=== PATIENT | male | born 1990 | race African-American/Black ===

== ENCOUNTER 2017-08-02 03:05 | Emergency (ER) | payer SELFPAY ==
--- NOTE | 2017-08-02 09:41 | NUR ---
SEE DIRECTOR TRAFFIC AND PLANNING CHARTING
== END 2017-08-02 22:46 | disposition home or self-care (01) ==
LOC: ER 03:05
DX: L50.0 Allergic urticaria (principal); J45.909 Unspecified asthma, uncomplicated

== ENCOUNTER 2017-08-10 05:08 | Emergency (ER) | payer SELFPAY ==
[~2017-08-10] VITALS: Ht 177.8 cm; Wt 72.6 kg
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
--- NOTE | 2017-08-10 06:02 | NUR ---
DR. DANG AT BEDSIDE FOR EVAL.
--- NOTE | 2017-08-10 06:06 | NUR ---
AT BEDSIDE FOR EVAL
[2017-08-10] MEDS ORDERED: KETOROLAC TROMETHAMINE 15 MG/ML VIAL ONE (06:08)
[2017-08-10] MEDS ORDERED: diphenhydrAMINE HCL 50 MG CAPSULE ONE (06:08)
[2017-08-10] MEDS ORDERED: FAMOTIDINE (20 MG) 20 MG TABLET ONE (06:25)
[2017-08-10] MEDS ORDERED: KETOROLAC TROMETHAMINE INJ 60 MG/2 ML VIAL IM ONE (06:30)
[2017-08-10] MEDS ORDERED: FAMOTIDINE (20 MG) 20 MG TABLET PO ONE (06:30)
[2017-08-10] MEDS ORDERED: diphenhydrAMINE HCL 50 MG CAPSULE PO ONE (06:30)
--- NOTE | 2017-08-10 06:31 | NUR ---
MEDICATED ORDERED BY
--- NOTE | 2017-08-10 06:50 | NUR ---
PT RESTING QUIETLY WITH EYES CLOSED. RESP EVEN AND UNLABORED/VSS.
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
--- NOTE | 2017-08-10 07:14 | NUR ---
REPORT GIVEN TO CORTES TELLEZ
--- NOTE | 2017-08-10 07:35 | NUR ---
Patient discharged to home in stable condition. Written and verbal after care instructions given. Patient verbalizes understanding of instruction.
[2017-08-10 07:36] VITALS: BP 111/71
== END 2017-08-10 07:36 | disposition home or self-care (01) ==
LOC: ER 05:10
DX: M54.41 Lumbago with sciatica, right side (principal); L50.9 Urticaria, unspecified; J45.909 Unspecified asthma, uncomplicated
CPT/HCPCS: 96372; 99283; A4606; J1885; Q0163; Z7610

== ENCOUNTER 2017-12-26 03:03 | Emergency (ER) | payer SELFPAY ==
[~2017-12-26] VITALS: Ht 170.2 cm; Wt 68.0 kg
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
--- NOTE | 2017-12-26 03:21 | NUR ---
DR. RAMOS AT BEDSIDE FOR EVAL.
[2017-12-26] MEDS ORDERED: HYDROCODONE/APAP 5/325MG 1 EACH TABLET PO ONE (03:30)
[2017-12-26] MEDS ORDERED: HYDROCODONE/APAP 5/325MG 1 EACH TABLET ONE (03:33)
--- NOTE | 2017-12-26 03:36 | NUR ---
PT TO RADIOLOGY
[2017-12-26 04:49] VITALS: BP 130/65
== END 2017-12-26 04:50 | disposition left against medical advice (07) ==
LOC: ER 03:04
DX: S09.90XA Unspecified injury of head, initial encounter (principal); S13.4XXA Sprain of ligaments of cervical spine, initial encounter; S33.5XXA Sprain of ligaments of lumbar spine, initial encounter; S20.219A Contusion of unspecified front wall of thorax, initial encounter; S50.812A Abrasion of left forearm, initial encounter; S50.811A Abrasion of right forearm, initial encounter; J45.909 Unspecified asthma, uncomplicated; V49.49XA Driver injured in collision with other motor vehicles in traffic accident, initial encounter; Y93.89 Activity, other specified; Y92.89 Other specified places as the place of occurrence of the external cause; Y99.8 Other external cause status
CPT/HCPCS: 70450-TC; 71045-TC; 72100-TC; 72125-TC; A4606; Z7610

== ENCOUNTER 2018-10-03 00:28 | Emergency (ER) | payer SELFPAY ==
[~2018-10-03] VITALS: Ht 167.6 cm; Wt 71.7 kg
[2018-10-03 00:31] VITALS: BP 155/78
--- NOTE | 2018-10-03 01:21 | NUR ---
Pt called to for MD mendez, no answer.
--- NOTE | 2018-10-03 01:28 | NUR ---
Pt called to bed. Per ER admitting, pt left ER. LWBS.
== END 2018-10-03 01:33 | disposition left against medical advice (07) ==
LOC: ER 00:30
DX: Z53.21 Procedure and treatment not carried out due to patient leaving prior to being seen by health care provider (principal); M54.5 Low back pain; I10 Essential (primary) hypertension; J45.909 Unspecified asthma, uncomplicated; V49.49XA Driver injured in collision with other motor vehicles in traffic accident, initial encounter; Y93.89 Activity, other specified; Y92.89 Other specified places as the place of occurrence of the external cause; Y99.8 Other external cause status
CPT/HCPCS: A4606; Z7610

== ENCOUNTER 2020-08-03 20:29 | Emergency (ER) | payer SELFPAY ==
[~2020-08-03] VITALS: Ht 172.7 cm; Wt 74.8 kg
[2020-08-03] MEDS ORDERED: LORAZEPAM 1 MG TABLET PO ONE (21:00)
[2020-08-03] MEDS ORDERED: LORAZEPAM 1 MG TABLET ONE (21:22)
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
[2020-08-03] MEDS ORDERED: IV NS 0.9% 1,000 ML BAG IV ONE (21:30)
[2020-08-03] MEDS ORDERED: ONDANSETRON HCL/PF 4 MG/2 ML VIAL IVP ONE (21:30)
[2020-08-03] MEDS ORDERED: ONDANSETRON HCL/PF 4 MG/2 ML VIAL ONE (21:35)
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
[2020-08-03 22:05] LABS: BASOPHILS % (AUTO) 0.4 % (0.0-2.0); EOSINOPHILS % (AUTO) 0.2 % (0.0-6.0); HEMATOCRIT 47 % (39-51); HEMOGLOBIN 16.3 g/dL (13.5-17.5); LYMPHOCYTES # (AUTO) 2.2 /CMM (0.8-4.8); LYMPHOCYTES % (AUTO) 28.2 % (20.0-44.0); MEAN CORPUSCULAR HGB CONC 35 g/dl (31.0-36.0); MEAN CORPUSCULAR VOLUME 96 fL (80-96); MONOCYTES # (AUTO) 0.5 /CMM (0.1-1.30); MONOCYTES % (AUTO) 6.9 % (2.0-12.0); NEUTROPHILS # (AUTO) 5.1 /CMM (1.8-8.9); NEUTROPHILS % (AUTO) 64.3 % (43.0-81.0); PLATELET COUNT (AUTO) 192 /CMM (150-450); RED BLOOD CELL COUNT(AUTO) 4.84 MIL/uL (4.5-6.0)
[2020-08-03 22:18] LABS: CALCIUM, SERUM 9.3 mg/dL (8.5-10.1); CREATININE 1.1 mg/dL (0.6-1.3); POTASSIUM 3.4 mmol/L (3.5-5.1)
[2020-08-03 22:24] LABS: BILIRUBIN,DIRECT 0.2 mg/dL (0.0-0.2); BILIRUBIN,TOTAL 0.7 mg/dL (0.2-1.0); TOTAL PROTEIN, SERUM 7.6 g/dL (6.4-8.2)
--- NOTE | 2020-08-03 23:51 | NUR ---
IV removed. Catheter intact and site benign. Pressure and 4x4 applied to site. No bleeding noted.
--- NOTE | 2020-08-03 23:51 | NUR ---
Patient discharged to home in stable condition. Written and verbal after care instructions given. Patient verbalizes understanding of instruction. Pt ambulated with steady gait, vss.
[2020-08-03 23:52] VITALS: BP 111/62
== END 2020-08-03 23:52 | disposition home or self-care (01) ==
LOC: ER 20:34
DX: R06.02 Shortness of breath (principal); R11.0 Nausea; F12.90 Cannabis use, unspecified, uncomplicated; I10 Essential (primary) hypertension; J45.909 Unspecified asthma, uncomplicated
CPT/HCPCS: 36415; 71045; 80048; 80076; 84484; 85025; 93005; 96361; 96374; 99285; J2405; J7030

== ENCOUNTER 2020-08-27 17:18 | Emergency (ER) | payer SELFPAY ==
[~2020-08-27] VITALS: Ht 170.2 cm; Wt 71.2 kg
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
[2020-08-27] MEDS ORDERED: HYDROCODONE/APAP 5/325MG TABLET ONE ×2 (17:43→18:05)
[2020-08-27] MEDS ORDERED: IBUPROFEN 600 MG TABLET ONE (17:43)
[2020-08-27] MEDS: IBUPROFEN 600 MG TABLET PO ONE (18:00)
[2020-08-27] MEDS: HYDROCODONE/APAP 5/325MG TABLET PO ONE ×2 (18:00→18:08)
[2020-08-27] MEDS ORDERED: ALBUTEROL FS 2.5 MG/3 ML VIAL.NEB ONE (18:13)
[2020-08-27] MEDS: ALBUTEROL FS 2.5 MG/3 ML VIAL.NEB NEB ONE (18:17)
[2020-08-27 18:30] VITALS: BP 140/86
--- NOTE | 2020-08-27 18:30 | NUR ---
Patient discharged to home in stable condition. Written and verbal after care instructions given. Patient verbalizes understanding of instruction.
== END 2020-08-27 18:31 | disposition home or self-care (01) ==
LOC: ER 17:20
DX: S46.811A Strain of other muscles, fascia and tendons at shoulder and upper arm level, right arm, initial encounter (principal); M25.531 Pain in right wrist; I10 Essential (primary) hypertension; J45.909 Unspecified asthma, uncomplicated; W01.0XXA Fall on same level from slipping, tripping and stumbling without subsequent striking against object, initial encounter; Y93.89 Activity, other specified; Y92.89 Other specified places as the place of occurrence of the external cause; Y99.8 Other external cause status
CPT/HCPCS: 73030-TC; 73110

== ENCOUNTER 2020-09-17 08:19 | Emergency (ER) | payer SELFPAY ==
[~2020-09-17] VITALS: Ht 170.2 cm; Wt 72.6 kg
[2020-09-17] MEDS ORDERED: LORAZEPAM 1 MG TABLET ONE (08:52)
[2020-09-17] MEDS ORDERED: LORAZEPAM 1 MG TABLET PO ONE (09:00)
[2020-09-17 09:30] VITALS: BP 149/90
--- NOTE | 2020-09-17 09:30 | NUR ---
Pt admits to "I took some week" Patient discharged to home in stable condition. Written and verbal after care instructions given. Patient verbalizes understanding of instruction.
== END 2020-09-17 09:31 | disposition home or self-care (01) ==
LOC: ER 08:20
DX: F41.1 Generalized anxiety disorder (principal); I10 Essential (primary) hypertension; J45.909 Unspecified asthma, uncomplicated

== ENCOUNTER 2021-03-28 16:50 | Emergency (ER) | payer SELFPAY ==
[~2021-03-28] VITALS: Ht 167.6 cm; Wt 72.1 kg
[2021-03-28 17:08] VITALS: BP 127/81
--- NOTE | 2021-03-28 17:15 | NUR ---
The patient presented to ER for c/o feeling light headed and anxious x 1 hr. Respiration regular and unlabored. Will continue to monitor the patient.
--- NOTE | 2021-03-28 17:58 | NUR ---
Patient eloped from facility. ER MD notified.
== END 2021-03-28 17:59 | disposition left against medical advice (07) ==
LOC: ER 16:50
DX: R42 Dizziness and giddiness (principal); F41.9 Anxiety disorder, unspecified; Z53.21 Procedure and treatment not carried out due to patient leaving prior to being seen by health care provider